=== PATIENT | female | born 1980 | race Caucasian/White ===

== ENCOUNTER 2021-05-19 13:12 | Inpatient (IN) | payer OTHER ==
[~2021-05-19] VITALS: Ht 162.6 cm; Wt 80.7 kg
[~2021-05-19 13:12] MED LIST: CALCIUM CARBONATE; LEVEMIR; PRENATAL1 TA1 PO; colace
[2021-05-20] VITALS (33 sets, daily range): BP systolic 99–135; BP diastolic 53–74; PULSE 66–98; TEMP 97.4–98
--- NOTE | 2021-05-20 06:30 | NUR ---
0630- 39.0, G5L1 arrives on unit for scheduled IOL. Ambulatory to LDR6 with spouse. Oriented to room and plan of care. Reports normal movement and irregular contractions. Denies any LOF or VB. Changes into clean gown. 0634- EFM explained, applied, and tracing well. VS obtained, and assessment completed. 0700- IV to left forearm. Routine labs obtained. IVF infusing. Consent forms explained and signed. 0713- SVE by this RN /2, VLADISLAV. Pitocin explained and started at 2mu per orders. 0715- PCN G #1 explained and infusing. Questions invited and answered. Patient resting in bed with call light within reach.
[2021-05-20] MEDS ORDERED: LANTUS100 U/ML SQ (07:37)
[2021-05-20] MEDS ORDERED: SYNTHROID0.088 MG/T PO (07:38)
[2021-05-20] MEDS ORDERED: PRILOSEC 20MG20 MG PO (07:38)
[2021-05-20 08:22] LABS: BASO # 0.1 K/mm3 (0.0-0.2); BASO % 0.5 % (0.0-2.0); EOS # 0.1 K/mm3 (0.0-0.7); EOS % 0.9 % (0.0-4.0); GRAN # 6.3 K/mm3 (1.4-6.5); HEMOGLOBIN 12.6 g/dl (12.5-16.0); LYMPH % 21.6 % (20.0-51.0); MEAN CELL VOLUME 91 fl (80.0-100.0); MEAN CORPUSCULAR HEMOGLOBIN 32 pg (27-31); MEAN CORPUSCULAR HGB CONC 35 g/dl (33.0-37.0); MEAN PLATELET VOLUME 11.4 fl (7.4-10.4); MONO # 0.7 K/mm3 (0.1-0.6); MONO % 7.9 % (1.7-9.3); PLATELET COUNT 256 K/mm3 (130-400); RED BLOOD COUNT 3.99 M/mm3 (4.10-5.30); REDCELL DISTRIBUTION WIDTH-CV 14.2 % (11.5-14.5)
[2021-05-20 08:28] LABS: HEMATOCRIT 36.4 % (37.0-47.0)
--- NOTE | 2021-05-20 09:02 | NUR ---
Patient noted to be breathing though contractions. Patient requesting ashlee. Chun Spencer CRNA notified.
--- NOTE | 2021-05-20 11:04 | NUR ---
Bilateral side lying hip release.
--- NOTE | 2021-05-20 11:30 | NUR ---
1130- SVE C/+1. Practice push at this time. Moves vertex well. Yanique care provided and patient sitting high fowlers. 1144- Dr. Dill updated on pt. See physician notification. 1145- Leija catheter removed. RN at bedside. Pt instructed on pushing with contractions. Begins to push with contractions. Moves vertex well. 1156- Dr. Dill at bedside. Pt continues to push with RN at bedside. Strong maternal effort. 1203- FHR audible 50's. Dr. Dill to bedside for delivery. 1205- Patient continues to push with contractions with RN and Dr. Dill at bedside. Large crown. 1207- Spontaneous vaginal delivery of viable female . To mother's chest where dried and stimulated by nursery RN. Pitocin paused. 1209- Cord clamped x2 and cut by father of . Care of assumed by Bob Holman RN. 1210- Spontaneous and intact delivery of placenta. Pitocin to 333ml/hr per protocol. 2nd degree, and right vaginal sulcus repair by Dr. Dill. Per Small amount of lochia noted. 1215- Yanique care provided, pads changed, and ice pack to perineum. Plan of care and safety precautions reviewed with pt and spouse who verbalize understanding. See physician dictation, anesthesia record, and nurses notes.
[2021-05-21 04:00] VITALS: BP 109/64; PULSE 70; TEMP 98.2
[2021-05-21 08:17] VITALS: BP 114/73; PULSE 76; TEMP 97.5
--- NOTE | 2021-05-21 10:00 | NUR ---
Initial visit; Parents thanked Provider Relations Specialist for offering congratulations and God's blessings for the santa of their daughter. Provider Relations Specialist thanked family for choosing [facility].
[2021-05-21 16:30] VITALS: BP 109/62; PULSE 97; TEMP 97.9
--- NOTE | 2021-05-21 17:29 | NUR ---
PTS FBS WAS 78, 1100 2HRPP WAS 98, 1530 2HR PP FROM LUNCH 101
--- NOTE | 2021-05-21 17:49 | NUR ---
1730 DR BARBER NOTIFIED PT HAS A PEA SIZE KNOT IN BACK OF LT KNEE, NOT RED OR WARM TO TOUCH, DR BARBER TO BEDSIDE TO OBSERVE AREA, WE ARE TO OBSERVE AND KEEP AN EYE ON THIS AREA.
[2021-05-21 18:50] VITALS: BP 108/68; PULSE 76; TEMP 97.8
[2021-05-22 08:00] VITALS: BP 106/76; PULSE 72; TEMP 98.4
[2021-05-22] MEDS ORDERED: IBU800 M1 PO (10:10)
--- NOTE | 2021-05-22 11:08 | NUR ---
0800 PATIENT TAKES BS THIS MORNING 86 RESULTED.
== END 2021-05-22 12:38 | disposition home or self-care (01) | DRG 807 ==
LOC: LDR 05-20 06:19 → OB 05-20 06:19 → LDR 05-20 12:48 → OB 05-20 14:15
PROVIDERS: ADMIT Student in an Organized Health Care Education/Training Program
PROC: 10E0XZZ Delivery of Products of Conception, External Approach (ICD-10-PCS; principal; 2021-05-20)
PROC: 0KQM0ZZ Repair Perineum Muscle, Open Approach (ICD-10-PCS; 2021-05-20)
PROC: 10907ZC Drainage of Amniotic Fluid, Therapeutic from Products of Conception, Via Natural or Artificial Opening (ICD-10-PCS; 2021-05-20)
PROC: 3E033VJ Introduction of Other Hormone into Peripheral Vein, Percutaneous Approach (ICD-10-PCS; 2021-05-20)
DX: O24.425 Gestational diabetes mellitus in childbirth, controlled by oral hypoglycemic drugs (principal); Z37.0 Single live birth; O99.283 Endocrine, nutritional and metabolic diseases complicating pregnancy, third trimester; E03.9 Hypothyroidism, unspecified; O70.1 Second degree perineal laceration during delivery; O99.820 Streptococcus B carrier state complicating pregnancy; O99.343 Other mental disorders complicating pregnancy, third trimester; F41.9 Anxiety disorder, unspecified; F42.9 Obsessive-compulsive disorder, unspecified; O99.613 Diseases of the digestive system complicating pregnancy, third trimester; K21.9 Gastro-esophageal reflux disease without esophagitis; Z3A.39 39 weeks gestation of pregnancy
CPT/HCPCS: J2540; J2590; J2791; J2795; J7120